=== PATIENT | male | born 1975 | race Caucasian/White ===

== ENCOUNTER 2023-12-16 11:41 | Emergency (ER) | payer SELFPAY ==
[2023-12-16] MEDS ORDERED: LORazepam 2 MG/ML VIAL ONE (11:57)
[2023-12-16] MEDS ORDERED: NA CHLORIDE 0.9% 1,000 ML ONE ×2 (11:57→13:23)
[2023-12-16 12:13] LABS: Absolute Basophils 0.1 K/uL (0-0.5); Absolute Eosinophils 0.1 K/uL (0-0.5); Absolute Lymphocytes (CBC) 1.6 K/uL (0.7-4.9); Absolute Monocytes 0.7 K/uL (0.1-1.3); Absolute Neutrophil 6.3 K/uL (1.8-8.0); Basophils % 0.6 % (0-1.3); Eosinophils % 1.4 % (0-4.4); Hematocrit 40.6 % (39.6-49.0); Hemoglobin 13.5 g/dL (13.6-17.9); Lymphocytes % 18.6 % (15.3-44.8); MCH 29.1 pg (27.0-35.0); MCHC 33.2 g/dL (32.0-36.0); MCV 87.7 fL (80-100); MPV 8.4 fL (7.6-11.3); Monocytes % 8.5 % (3.3-12.3); Neutrophils % 70.9 % (41.7-73.7); Platelets 278 thou/uL (152-406); RBC Red Blood Cell Count 4.63 M/uL (4.33-5.43); Red Cell Distribution Width 13.6 % (12.1-15.2)
[2023-12-16 12:20] LABS: PT Prothrombin Time 13.1 SECONDS (9.5-12.5); PTT, Activated Partial Thromb 28.3 SECONDS (24.3-36.9); Protime INR 1.2
[2023-12-16 12:47] LABS: ALT/SGPT 56 U/L (16-61); AST/SGOT 45 U/L (15-37); Albumin 3.8 g/dL (3.4-5.0); Albumin/Globulin Ratio 1.3 (1.1-1.8); Alkaline Phosphatase 62 U/L (45-117); Anion Gap 14.5 mEq/L (5.0-15.0); BUN Blood Urea Nitrogen 12 mg/dL (7-18); Bicarbonate 22 mEq/L (21-32); Bilirubin Direct 0.2 mg/dL (0-0.2); Bilirubin Indirect, Calculated 0.7 mg/dL (0.2-0.8); Bilirubin Total 0.9 mg/dL (0.2-1.0); Creatine Phosphokinase 610 U/L (39-308); Glomerular Filtration Rate 67 ml/min (=/>90); Glucose Level 80 mg/dL (74-106); Magnesium 2.2 mg/dL (1.6-2.4); Potassium 3.5 mEq/L (3.5-5.1); Protein, Total 6.8 g/dL (6.4-8.2); Sodium Level 143 mEq/L (136-145); Troponin High Sensitivity 14.6 pg/mL (<58.9)
--- NOTE | 2023-12-16 13:13 | RAD REPORT ---
EXAM DESCRIPTION: RAD - Chest Single View - 12/16/2023 12:19 pm CLINICAL HISTORY: SOB Chest pain. COMPARISON: No comparisons FINDINGS: Portable technique limits examination quality. The lungs are grossly clear. The heart is normal in size. No displaced fractures. IMPRESSION: No acute intrathoracic process suspected.
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
[2023-12-16 15:03] VITALS: BP 127/80; TEMP 98; O2SAT 100
--- NOTE | 2023-12-17 14:17 | EKG ---
Test Date: 2023-12-16 Test Time: 11:51:30 Director Surgical: KRISTEN MEASUREMENT RESULTS: Intervals: Rate: 110 [place]: 140 QRSD: 90 QT: 350 QTc: 473 [place]: P: 79 [place]: 140 QRS: 80 T: 63 INTERPRETIVE STATEMENTS: Sinus tachycardia Otherwise normal ECG No previous ECG available for comparison Electronically Signed On 12-17-23 14:12:54 CDT by Monster Brantley
== END 2023-12-16 13:55 | disposition home or self-care (01) ==
LOC: ER 11:41
DX: R52 Pain, unspecified (principal); F41.9 Anxiety disorder, unspecified
CPT/HCPCS: 36415; 71045; 80053; 80076; 80143; 80179; 82077; 82550; 83735; 84484; 85025; 85610; 85730; 93005; 96361; 96374; 99284; J7030

== ENCOUNTER 2023-12-18 09:42 | Emergency (ER) | payer OTHER, SELFPAY ==
[2023-12-18 10:12] LABS: Absolute Eosinophils 0.1 K/uL (0-0.5); Absolute Lymphocytes (CBC) 1.3 K/uL (0.7-4.9); Absolute Monocytes 0.5 K/uL (0.1-1.3); Absolute Neutrophil 5.5 K/uL (1.8-8.0); Basophils % 0.6 % (0-1.3); Eosinophils % 0.8 % (0-4.4); Hemoglobin 14.1 g/dL (13.6-17.9); Lymphocytes % 17.6 % (15.3-44.8); MCH 29.3 pg (27.0-35.0); MCHC 33.5 g/dL (32.0-36.0); MCV 87.5 fL (80-100); MPV 8.2 fL (7.6-11.3); Monocytes % 6.5 % (3.3-12.3); Neutrophils % 74.5 % (41.7-73.7); Platelets 252 thou/uL (152-406); Red Cell Distribution Width 13.4 % (12.1-15.2)
[2023-12-18 10:15] LABS: Protime INR 1.19
[2023-12-18 10:32] LABS: ALT/SGPT 51 U/L (16-61); AST/SGOT 37 U/L (15-37); Albumin 3.2 g/dL (3.4-5.0); Albumin/Globulin Ratio 1.1 (1.1-1.8); Alkaline Phosphatase 63 U/L (45-117); Anion Gap 9.6 mEq/L (5.0-15.0); BUN Blood Urea Nitrogen 11 mg/dL (7-18); Bicarbonate 28 mEq/L (21-32); Bilirubin Direct 0.2 mg/dL (0-0.2); Bilirubin Indirect, Calculated 0.5 mg/dL (0.2-0.8); Bilirubin Total 0.7 mg/dL (0.2-1.0); Glomerular Filtration Rate 106 ml/min (=/>90); Glucose Level 91 mg/dL (74-106); Potassium 3.6 mEq/L (3.5-5.1); Protein, Total 6.2 g/dL (6.4-8.2); Sodium Level 137 mEq/L (136-145)
[2023-12-18 11:55] VITALS: BP 120/82; TEMP 98; O2SAT 100
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
--- NOTE | 2023-12-18 15:06 | ER ---
Nurse's Notes [facility] Name: Duncan Burton Age: 47 yrs Sex: Male : 1975 Arrival Date: 12/18/2023 Time: 09:42 Bed 13 Private MD: Diagnosis: Schizophrenia, unspecified Presentation: 12/17 09:50 Chief complaint: EMS states: SUBJECTIVE PANIC ATTACK WHILE IN CUSTODY FOR ALLEGED bp MURDER. Coronavirus screen: At this time, the client does not indicate any symptoms associated with coronavirus-19. Ebola Screen: No symptoms or risks identified at this time. Initial Sepsis Screen: Does the patient meet any 2 criteria? No. Patient's initial sepsis screen is negative. Does the patient have a suspected source of infection? No. Patient's initial sepsis screen is negative. Risk Assessment: Do you want to hurt yourself or someone else? Patient reports no desire to harm self or others. Onset of symptoms is unknown. 09:50 Method Of Arrival: EMS: [facility] bp 09:50 Acuity: MATTHEW 2 bp Triage Assessment: 09:54 General: Appears in no apparent distress. Behavior is anxious. Pain: Denies pain. EENT: bp No deficits noted. Neuro: Level of Consciousness is awake, alert. Cardiovascular: Rhythm is sinus rhythm. Respiratory: No deficits noted. GI: No signs and/or symptoms were reported involving the gastrointestinal system. : No signs and/or symptoms were reported regarding the genitourinary system. Derm: No deficits noted. Musculoskeletal: No deficits noted. Historical: - Allergies: 09:54 No Known Allergies; bp - PMHx: 09:54 Anxiety; Schizophrenia; bp - Immunization history:: Adult Immunizations up to date. - Infectious Disease History:: Denies. - Social history:: Smoking status: unknown. Screenin:55 [facility] ED Fall Risk Assessment (Adult) History of falling in the last 3 months, bp including since admission No falls in past 3 months (0 pts) Confusion or Disorientation No (0 pts) Intoxicated or Sedated No (0 pts) Impaired Gait No (0 pts) Mobility Assist Device Used No (0 pt) Altered Elimination No (0 pt) Score/Fall Risk Level 0 - 2 = Low Risk. Abuse screen: Denies threats or abuse. Denies injuries from another. Nutritional screening: No deficits noted. Tuberculosis screening: No symptoms or risk factors identified. Assessment: 09:56 General: IN CUSTODY. bp 11:15 Reassessment: RELEASED IN [facility] CUST[facility]. bp Vital Signs: 09:50 BP 136 / 83; Pulse 82; Resp 18; Temp 98.2(O); Pulse Ox 99% on R/A; Pain 0/10; em1 09:50 BP 120 / 82; Pulse 80; Resp 16; Temp 98; Pulse Ox 100% ; bp 09:50 Pain Scale: Adult em1 ED Course: 09:49 Patient arrived in ED. bd 09:50 Griffin Chicas, RN is Primary Nurse. bp 09:51 Tyrone Leos MD is Attending Physician. sp3 09:54 Triage completed. bp 09:54 Arm band placed on. bp 09:55 Patient has correct armband on for positive identification. Security at bedside. bp 10:09 Acetaminophen Sent. em1 10:10 Basic Metabolic Panel Sent. em1 10:10 CBC with Diff Sent. em1 10:10 ETOH Level Sent. em1 10:10 Hepatic Function Sent. em1 10:10 PT-INR Sent. em1 10:10 Salicylate Sent. em1 10:10 Initial lab(s) drawn, by mo, sent to lab. em1 11:15 Provided Education on: N/A. bp 11:15 No provider procedures requiring assistance completed. Patient did not have IV access bp during this emergency room visit. Administered Medications: No medications were administered Medication: 11:15 VIS not applicable for this client. bp Outcome: 11:02 Discharge ordered by . sp3 11:15 Discharged to Law Enforcement bp 11:15 Condition: stable 11:15 Discharge instructions given to police, Instructed on discharge instructions, follow up and referral plans. Demonstrated understanding of instructions, follow-up care, 11:16 Patient left the ED. bp Signatures: Sallie Duran Eric em1 Griffin Chicas, RN RN bp Tyrone Leos MD MD sp3
== END 2023-12-18 11:16 | disposition home or self-care (01) ==
LOC: ER 09:42
DX: F20.9 Schizophrenia, unspecified (principal)
CPT/HCPCS: 36415; 80048; 80076; 80143; 80179; 82077; 85025; 85610